=== PATIENT | male | born 1985 | race Caucasian/White ===

== ENCOUNTER → 2019-04-26 07:56 | Outpatient (CLI) | payer OTHER, SELFPAY ==
[2017-06-23 09:28] VITALS: BMI 39.7
[2019-04-26 08:37] LABS: Absolute Lymphocyte Count 1.88 X10^3/uL (0.83-4.51); Absolute Neutrophil Count 2.9 X10^3/uL (2.0-7.7); Basophil# 0.05 X10^3/uL; Basophil% 0.9 % (0-1); Eosinophil# 0.14 X10^3/uL; Eosinophils% 2.5 % (0-5); Hematocrit 45.5 % (40-54); Hemoglobin 15.5 g/dL (13.0-16.5); Lymphocyte # 1.88 X10^3/ul (4.0); Lymphocyte % 33.9 % (19-41); Mean Corp Hgb Conc 34.1 g/dL (32-36); Mean Corpuscular Hgb 31.3 pg (27.0-32.0); Mean Corpuscular Volume 91.9 fL (80-94); Mean Platelet Vol. 9.4 fl (6.2-12.0); Monocyte# 0.55 X10^3/uL; Monocyte% 9.9 % (0-10); NRBC Flagged by Analyzer 0 % (0-5); Neutrophil % 52.3 % (47-70); Platelet Count 321 K/mm3 (150-450); RBC Distribution Width CV 12.2 % (11.6-14.6); Red Blood Count 4.95 M/mm3 (4.6-6.2); White Blood Count 5.6 K/mm3 (4.4-11.0)
[2019-04-26 09:33] LABS: ALB/GLOB Ratio 1.2 RATIO (0.9-2.4); AST(SGOT) 19 U/L (15-37); Alanine Aminotransfer ALT/SGPT 36 U/L (16-61); Alkaline Phosphatase 47 U/L (45-117); Anion Gap 4 (5-15); BUN 13 mg/dL (7-18); BUN/Creat Ratio 17.1 RATIO (10-20); Chloride 109 mmol/L (98-107); Cholesterol 142 mg/dL (200); Creatinine, Serum 0.76 mg/dL (0.70-1.30); EST Glomerular Filtration Rate 127 mL/min (>60); Est Glom Filt Rate - Afr Amer 153 mL/min (>60); Globulin 3.3 g/dL (2.2-4.2); Glucose 89 mg/dL (74-106); High Density Lipoprotein 43 mg/dL; Protein, Total 7.3 g/dL (6.4-8.2); Sodium Level 141 mmol/L (136-145); Triglycerides 45 mg/dL; Very Low Density Lipoprotein 9 mg/dL (5-40)
== END ==
PROVIDERS: PCP Family Medicine; Referring Provider Family Medicine; Visit Provider Family Medicine
DX: Z00.01 Encounter for general adult medical examination with abnormal findings (principal); K21.9 Gastro-esophageal reflux disease without esophagitis; I86.1 Scrotal varices
CPT/HCPCS: 36415; 80053; 80061; 85025

== ENCOUNTER → 2019-05-06 16:08 | Outpatient (CLI) | payer OTHER, SELFPAY ==
[2019-04-29 08:00] VITALS: BMI 39.7
--- NOTE | 2019-05-06 16:15 | US_ITS ---
HISTORY: PAIN ON LT SOMETIMES MILD OR SEVERE NO SWELLING -X 9 YEARS ADDITIONAL HISTORY: None provided. COMPARISON: None TECHNIQUE: Sonographic images of the scrotum were acquired utilizing grayscale and color Doppler images. Spectral Doppler imaging also performed. Number of images including paperwork: 96 FINDINGS: TESTES: Right testis: 4.8 x 2.3 x 3.5 cm. Left testis: 4.7 x 2.4 x 3.2 cm. Testicular echogenicity appears symmetric. Testicular flow is seen bilaterally on Doppler imaging, essentially symmetric. Punctate calcification in the left testis. EPIDIDYMIDES: Normal in size with normal-appearing flow. HYDROCELE: Small bilateral hydroceles. VARICOCELE: None detected. SCROTAL SKIN: No significant thickening. US/Testicular with Arterial Flow IMPRESSION: No definite acute scrotal abnormality is sonographically apparent. Small bilateral hydroceles. at 0145 Reported and signed by: Veronica No MD Electronically Signed: Veronica No MD at 1:45 EST Tel , Service support ,
== END ==
PROVIDERS: PCP Family Medicine; Referring Provider Family Medicine; Visit Provider Family Medicine
DX: I86.1 Scrotal varices (principal)
CPT/HCPCS: 76870; 93976

== ENCOUNTER 2019-05-21 06:44 | Day surgery (SDC) | payer OTHER, SELFPAY ==
[2019-04-29 08:00] VITALS: BMI 39.7
--- NOTE | 2019-04-29 08:00 | HP_ITS ---
Intake Vital Signs 04/29/19 BMI 39.7 04/29/19 Height 5 ft 11 in 04/29/19 Weight: 258 lb 6 oz 04/29/19 BMI 36.0 04/29/19 BP 159/90 H 04/29/19 Blood Pressure Location Rt brachial 04/29/19 Position Sitting 04/29/19 Respiration 19 H 04/29/19 Pulse 85 04/29/19 Pulse Source Monitor 04/29/19 Temp 98.7 F 04/29/19 Temp Source Oral 04/29/19 Pulse Oximetry (%) 97 04/29/19 Oxygen Delivery Method room air 04/29/19 Oxygen Flow Rate (L/min) 0 Intake Visit Reasons: C-Scope Consult Chief Complaint: Evaluation of left index finger, s/p Dermabond. Allergies No Known Allergies Allergy (Verified 06/23/17 09:29) FOR[facility]LY [facility] Medical History Family history of colon cancer (Acute) GERD (gastroesophageal reflux disease) (Acute) Asthma (Acute) Surgical History No history of previous surgery (Acute) Family History Father Hypertension Colon cancer Brother Colon cancer Mother Diabetes Other Cancer Social History (Updated 04/29/19 @ 08:01 by Luis Miguel Edmond MD) Smoking Status: Never smoker alcohol intake: never substance use type: does not use HPI HPI HPI: CUONG MARISCAL, is a 33 M who presents to the office today for HPI HPI Surgical H&P: Yes HPI: CUONG MARISCAL, is a 33 M who presents to the office today for Evaluation for endoscopy. Patient presents with a history of reflux recently started on Prilosec and he has had occasional rectal bleeding. He has a very strong family history of colon cancer. His father of colon cancer at age 70 his brother was diagnosed with colon cancer at age 46 with metastatic disease. Recently the patient had some laboratory values which showed an elevation in his total bilirubin 1.5 with normal cholesterol normal triglycerides and normal AST ALT and alkaline phosphatase. He takes a multivitamin was recently started on a proton pump inhibitor but is on no other medications. Patient does notice that he has some generalized abdominal pain when he eats fatty or greasy foods. Is not complaining of any back pain states that when he does have the greasy foods he will occasionally have looser stools. ROS General General: No weight change, appetite, fatigue, colon cancer, breast cancer or weakness HEENT HEENT: No difficulty swallowing, eye injury, eye surgery, swollen glands or hoarseness Endo Endocrine: No thyroid disease, diabetes mellitus, thyroid cancer, Hair loss, heat intolerance or cold intolerance Skin Skin: No rash or changing moles Breast Breast: No left breast lump, right breast lump, nipple discharge, breast pain, abnormal mammogram, abnormal US or breast enlargement Cardio Cardiovascular: No murmur, pacemaker, heart disease, atrial fibrillation, high blood pressure, heart attack, heart stent, palpitations, shortness of breat with exertion or chest pain Psych Psychiatric: No depression, anxiety or hearing voices Resp Respiratory: No shortness of breath, No sleep apnea, No cough, No COPD, Yes asthma, No emphysema, No wheezing Gastro Gastrointestinal: No abdominal pain, No nausea or vomiting, No diarrhea, No constipation, No blood in stool, Yes acid reflux, No hemorrhoids, No ulcers, No gallbladder problem, No black,tarry stools Kenneth Hematologic: No blood thinners, No blood disorders, No bleeding, No anemia, No blood clots Neuro Neurologic: No system reviewed and no additional complaints, except as docu, No as per HPI, No abnormal walking, No abnormal hearing, No abnormal movements, No abnormal speech, No behavioral changes, No burning sensations, No confusion, No seizure-like activity, No unsteadiness, No dizziness, No localized weakness, No frequent falls, No headache(s), No lack of coordination, No loss of vision, No memory loss, No numbness, No other visual disturbances, No radiating pain, No restless legs, No sensory deficit, No fainting, No tingling, No tremor(s), No weakness, No other Exam Const General: no acute distress, well developed, well hydrated Orientation: oriented to person, oriented to place, oriented to time [facility] Head: normocephalic, atraumatic Ears: external ears normal Mouth: moist mucous membranes Eyes Sclera: sclerae normal Pupils: normal by confrontation Neck Neck: no lymphadenopathy noted Neck mass: No Thyroid: thyroid normal, symmetrical Chest Chest palpation & inspection: normal inspection of the chest Breast Palpation: No nipple discharge Resp Effort & Inspection: normal respiratory effort Auscultation: clear to auscultation bilaterally Percussion: percussion normal Cardio Rate: regular rate Rhythm: regular rhythm Heart Sounds: no murmurs GI Palpation: soft, no hepatosplenomegaly, no masses, nontender Rectal Exam: other Other: Rectal exam deferred. Extrem General: normal to inspection, no clubbing, cyanosis or edema Assessment & Plan Problems 1. Rectal hemorrhage K62.5 2. Gastroesophageal reflux disease, esophagitis presence not specified K21.9 3. Total bilirubin, elevated R17 4. Family history of colon cancer Z80.0 5. Generalized abdominal pain R10.84 Plan I have discussed the above with the patient. I have offered the patient colonoscopy As well as an EGD for evaluation. I have explained the risks/benefits of the procedure and described the procedure. I have discussed the risks with the patient, including but not limited to: infection, bleeding, perforation of the GI tract requiring emergency surgery, inability to complete the procedure, injury to any internal organs, complications of anesthesia, etc. - the patient understands and agrees to proceed. I have answered all the patient's questions to the patient's satisfaction and the patient has no further questions. The patient has been given instructions for the colon cleansing preparation. Once this is completed we will probably entertain the thought of obtaining a CAT scan of his abdomen and pelvis secondary to the generalized abdominal pain and elevation in his total bilirubin. We may also need to obtain a gallbladder ultrasound. Coding Level of Care Code Off vis,new,level 3 Diagnoses Rectal hemorrhage K62.5 Gastroesophageal reflux disease, esophagitis presence not specified K21.9 ??Esophagitis presence: esophagitis presence not specified Total bilirubin, elevated R17 Family history of colon cancer Z80.0 Generalized abdominal pain R10.84 04/29/19 0801 <Electronically signed by Luis Miguel paniagua MD> Date _ Luis Miguel Edmond MD
[2019-05-21] VITALS (7 sets, daily range): BP systolic 112–133; BP diastolic 61–88; PULSE 77–91; RESP 18; TEMP 36.1–36.6; O2SAT 95–97; BMI 34.6
--- NOTE | 2019-05-21 | IMM_PTH ---
PATIENT: CUONG MARISCAL LOC: EN U#:[id number] AGE/SX: 33/M ROOM: RE05/21/[address]: Dr. Luis Miguel Edmond MD : 1985 BED: DIS: 05/21/2019 SPEC #: [id number] RECD: 05/21/19 15:28 STATUS: NAVJOT RECookie #: [id number] DURGA: 05/21/19 00:[address]: Luis Miguel Edmond DEPT: IMMUNOHISTOCHEMISTRY RECD BY: Ann Kaplan ENTERED: 05/21/19 15:28 SP TYPE: IMMUNO OTHR DR: Dr. Jennifer Blackmon MD Tissues: A - Stomach, NOS Procedures: H Pylori (initial) PHYSICIAN & INSTITUTION [place] [address] SPECIMEN INFORMATION: Tissue Source: Antrum biopsy Clinical Info: GERD Specimen Number: [id number] CPT code: 61181 METHODOLOGY: Deparaffinized sections of prefer/formalin-fixed tissue or PAP/DQ stained slides are incubated with monoclonal/polyclonal antibodies/oligonucleotide probes. Localization is made via biotin free immunoperoxidase method. Appropriate controls are performed and reacted as expected. Results on target cell population are indicated in the following table: RESULTS: ANTIBODY / CLONE RESULT H Pylori (polyclonal) negative These tests were developed and their performance characteristics determined by [facility]. They may not have been cleared or approved by the U.S. Food and Drug Administration. The FDA has determined that such clearance or approval is not necessary. INTERPRETATION: Antrum biopsy: Negative for Helicobacter pylori organisms. ROCHELLE:tasha 05/22/19
[2019-05-21] MEDS: Lactated Ringers 1,000 ML 100 ML IV (07:24)
--- NOTE | 2019-05-21 07:52 | PCM.HP.BLA ---
History and Physical Date of Admission: 05/21/19 [facility] Medical Records Department [address] [place] [address] History and Physical 04/29/19 0800 MR#: [id number] Acct: [id number] Name: CUONG MARISCAL Rep #: [id number] : 1985 33 From: Luis Miguel Edmond MD PCP: Jennifer Blackmon MD Status: PRE SD Location: EN Intake Vital Signs 04/29/19 BMI 39.7 04/29/19 Height 5 ft 11 in 04/29/19 Weight: 258 lb 6 oz 04/29/19 BMI 36.0 04/29/19 BP 159/90 H 04/29/19 Blood Pressure Location Rt brachial 04/29/19 Position Sitting 04/29/19 Respiration 19 H 04/29/19 Pulse 85 04/29/19 Pulse Source Monitor 04/29/19 Temp 98.7 F 04/29/19 Temp Source Oral 04/29/19 Pulse Oximetry (%) 97 04/29/19 Oxygen Delivery Method room air 04/29/19 Oxygen Flow Rate (L/min) 0 Intake Visit Reasons: C-Scope Consult Chief Complaint: Evaluation of left index finger, s/p Dermabond. Allergies No Known Allergies Allergy (Verified 06/23/17 09:29) PFSH Medical History Family history of colon cancer (Acute) GERD (gastroesophageal reflux disease) (Acute) Asthma (Acute) Surgical History No history of previous surgery (Acute) Family History Father Hypertension Colon cancer Brother Colon cancer Mother Diabetes Other Cancer Social History (Updated 04/29/19 @ 08:01 by Luis Miguel Edmond MD) Smoking Status: Never smoker alcohol intake: never substance use type: does not use HPI HPI HPI: CUONG MARISCAL is a 33 M who presents to the office today for HPI HPI Surgical H&P: Yes HPI: CUONG MARISCAL is a 33 M who presents to the office today for Evaluation for endoscopy. Patient presents with a history of reflux recently started on Prilosec and he has had occasional rectal bleeding. He has a very strong family history of colon cancer. His father of colon cancer at age 70 his brother was diagnosed with colon cancer at age 46 with metastatic disease. Recently the patient had some laboratory values which showed an elevation in his total bilirubin 1.5 with normal cholesterol normal triglycerides and normal AST ALT and alkaline phosphatase. He takes a multivitamin was recently started on a proton pump inhibitor but is on no other medications. Patient does notice that he has some generalized abdominal pain when he eats fatty or greasy foods. Is not complaining of any back pain states that when he does have the greasy foods he will occasionally have looser stools. ROS General General: No weight change, appetite, fatigue, colon cancer, breast cancer or weakness HEENT HEENT: No difficulty swallowing, eye injury, eye surgery, swollen glands or hoarseness Endo Endocrine: No thyroid disease, diabetes mellitus, thyroid cancer, Hair loss, heat intolerance or cold intolerance Skin Skin: No rash or changing moles Breast Breast: No left breast lump, right breast lump, nipple discharge, breast pain, abnormal mammogram, abnormal US or breast enlargement Cardio Cardiovascular: No murmur, pacemaker, heart disease, atrial fibrillation, high blood pressure, heart attack, heart stent, palpitations, shortness of breat with exertion or chest pain Psych Psychiatric: No depression, anxiety or hearing voices Resp Respiratory: No shortness of breath, No sleep apnea, No cough, No COPD, Yes asthma, No emphysema, No wheezing Gastro Gastrointestinal: No abdominal pain, No nausea or vomiting, No diarrhea, No constipation, No blood in stool, Yes acid reflux, No hemorrhoids, No ulcers, No gallbladder problem, No black,tarry stools Kenneth Hematologic: No blood thinners, No blood disorders, No bleeding, No anemia, No blood clots Neuro Neurologic: No system reviewed and no additional complaints, except as docu, No as per HPI, No abnormal walking, No abnormal hearing, No abnormal movements, No abnormal speech, No behavioral changes, No burning sensations, No confusion, No seizure-like activity, No unsteadiness, No dizziness, No localized weakness, No frequent falls, No headache(s), No lack of coordination, No loss of vision, No memory loss, No numbness, No other visual disturbances, No radiating pain, No restless legs, No sensory deficit, No fainting, No tingling, No tremor(s), No weakness, No other Exam Const General: no acute distress, well developed, well hydrated Orientation: oriented to person, oriented to place, oriented to time [facility] Head: normocephalic, atraumatic Ears: external ears normal Mouth: moist mucous membranes Eyes Sclera: sclerae normal Pupils: normal by confrontation Neck Neck: no lymphadenopathy noted Neck mass: No Thyroid: thyroid normal, symmetrical Chest Chest palpation & inspection: normal inspection of the chest Breast Palpation: No nipple discharge Resp Effort & Inspection: normal respiratory effort Auscultation: clear to auscultation bilaterally Percussion: percussion normal Cardio Rate: regular rate Rhythm: regular rhythm Heart Sounds: no murmurs GI Palpation: soft, no hepatosplenomegaly, no masses, nontender Rectal Exam: other Other: Rectal exam deferred. Extrem General: normal to inspection, no clubbing, cyanosis or edema Assessment & Plan Problems 1. Rectal hemorrhage K62.5 2. Gastroesophageal reflux disease, esophagitis presence not specified K21.9 3. Total bilirubin, elevated R17 4. Family history of colon cancer Z80.0 5. Generalized abdominal pain R10.84 Plan I have discussed the above with the patient. I have offered the patient colonoscopy As well as an EGD for evaluation. I have explained the risks/benefits of the procedure and described the procedure. I have discussed the risks with the patient, including but not limited to: infection, bleeding, perforation of the GI tract requiring emergency surgery, inability to complete the procedure, injury to any internal organs, complications of anesthesia, etc. - the patient understands and agrees to proceed. I have answered all the patient's questions to the patient's satisfaction and the patient has no further questions. The patient has been given instructions for the colon cleansing preparation. Once this is completed we will probably entertain the thought of obtaining a CAT scan of his abdomen and pelvis secondary to the generalized abdominal pain and elevation in his total bilirubin. We may also need to obtain a gallbladder ultrasound. Coding Level of Care Code Off vis,new,level 3 Diagnoses Rectal hemorrhage K62.5 Gastroesophageal reflux disease, esophagitis presence not specified K21.9 ??Esophagitis presence: esophagitis presence not specified Total bilirubin, elevated R17 Family history of colon cancer Z80.0 Generalized abdominal pain R10.84 04/29/19 0801 <Electronically signed by Luis Miguel Edmond MD> Date Luis Miguel Edmond MD 05/01/19 1036 <Electronically signed by Luis Miguel Edmond MD> Date: Time: Lusi Miguel Edmond MD CC: Luis Miguel Edmond MD; Jennifer Blackmon MD ~ Date Dictated: 04/29/19 0800 Date Transcribed: 04/29/19 1557 Employee Relations Administrator: NR Signed I have re-examined the patient. There are no clinical changes since date of exam.
--- NOTE | 2019-05-21 08:00 | GASB_PTH ---
PATIENT: CUONG MARISCAL LOC: EN U#:[id number] AGE/SX: 33/M ROOM: RE05/21/[address]: Dr. Luis Miguel Edmond MD : 1985 BED: DIS: 05/21/2019 SPEC #: [id number] RECD: 05/21/19 11:40 STATUS: NAVJOT TRUONG #: [id number] DURGA: 05/21/19 08:[address]: Luis Miguel Edmond DEPT: SURGICAL PATHOLOGY RECD BY: Whit Lopez ENTERED: 05/21/19 12:36 SP TYPE: Gastric Bx OTHR DR: Dr. Jennifer Blackmon MD Tissues: Gastric mucous membrane Procedures: Surgery Specimen Level IV HEADER OPERATION: Colonoscopy, EGD ([facility]) PRE-OP DIAGNOSIS: GERD, family history of colon cancer TISSUE SUBMITTED: Antrum biopsy for H. pylori and path MICROSCOPIC DIAGNOSIS Antrum biopsy: Minimal gastritis. A few lymphoid aggregates, favor benign. See microscopic description and comment. ROCHELLE:tasha 05/22/19 COMMENT The results of immunohistochemistry for Helicobacter pylori will be reported separately ([id number]). MICROSCOPIC DESCRIPTION Slides are reviewed. The specimen shows fragments of gastric mucosa with chronic inflammatory cell infiltrates in the lamina propria consisting of lymphocytes and plasma cells, consistent with minimal chronic gastritis. A few lymphoid aggregates are also noted, favor benign. GROSS DESCRIPTION Received in fixative is one container labeled with the patient's name and designated antrum biopsy. The specimen consists of one irregular fragment of light rosales soft tissue that measures 0.6 x 0.3 x 0.1 cm. The specimen is totally submitted in one cassette. / ROCHELLE:tasha 05/21/19 TC:3 CPT: 12558
--- NOTE | 2019-05-21 08:27 | OP.EGD_ITS ---
Patient Name: Foster Mendoza Procedure Date: 05/21/2019 7:59 AM Date of : 1985 Age: 33 Procedure: Upper GI endoscopy Indications: Esophageal reflux, Occult blood in stool Providers: Luis Miguel Edmond MD Referring MD: Luis Miguel Edmond MD Medicines: See the Anesthesia note for documentation of the administered medications Patient Profile: This is a 33 year old male. Refer to note in patient chart for documentation of history and physical. Complications: No immediate complications. Procedure: Pre-Anesthesia Assessment: - Prior to the procedure, a History and Physical was performed, and patient medications and allergies were reviewed. The patient's tolerance of previous anesthesia was also reviewed. The risks and benefits of the procedure and the sedation options and risks were discussed with the patient. All questions were answered, and informed consent was obtained. Prior Anticoagulants: The patient has taken no previous anticoagulant or antiplatelet agents. ASA Grade Assessment: II - A patient with mild systemic disease. After reviewing the risks and benefits, the patient was deemed in satisfactory condition to undergo the procedure. After obtaining informed consent, the endoscope was passed under direct vision. Throughout the procedure, the patient's blood pressure, pulse, and oxygen saturations were monitored continuously. The gastroscope was introduced through the mouth, and advanced to the second part of duodenum. The upper GI endoscopy was accomplished without difficulty. The patient tolerated the procedure well. Scope In: 8:07:43 AM Scope Out: 8:10:42 AM Total Procedure Duration Time 0 hours 2 minutes 59 seconds Findings: The examined esophagus was normal. The Z-line was regular and was found 44 cm from the incisors. The entire examined stomach was normal. Biopsies were taken with a cold forceps for Helicobacter pylori testing. The examined duodenum was normal. No biopsies or other specimens were collected for this exam. Impression: - Normal esophagus. - Z-line regular, 44 cm from the incisors. - Normal stomach. Biopsied. - Normal examined duodenum. No specimens collected. Recommendation: - Discharge patient to home. - Resume previous diet. - Continue present medications. - Await pathology results. - Repeat upper endoscopy (date not yet determined) for surveillance. - Return to my office in 1 week. Procedure Code(s): --- Professional --- 68211, Esophagogastroduodenoscopy, flexible, transoral; with biopsy, single or multiple Diagnosis Code(s): --- Professional --- K21.9, Gastro-esophageal reflux disease without esophagitis R19.5, Other fecal abnormalities CPT copyright 2017 [employer]. All rights reserved. The codes documented in this report are preliminary and upon medicare compliance auditor review may be revised to meet current compliance requirements. MD Luis Miguel Polo MD 05/21/2019 8:26:42 AM This report has been signed electronically. Number of Addenda: 0 Note Initiated On: 05/21/2019 7:59 AM
--- NOTE | 2019-05-21 08:27 | OP.CCLET_ITS ---
05/21/2019 Jennifer Blackmon [place] [address] [place] [address] Re : Upper GI endoscopy procedure for Foster Mendoza Dear Dr. Blackmon This procedure was performed on Tuesday, May 21, 2019. My impressions and recommendations are as follows: Impressions : - Normal esophagus. - Z-line regular, 44 cm from the incisors. - Normal stomach. Biopsied. - Normal examined duodenum. No specimens collected. Recommendations : - Discharge patient to home. - Resume previous diet. - Continue present medications. - Await pathology results. - Repeat upper endoscopy (date not yet determined) for surveillance. - Return to my office in 1 week. My findings are described in the full procedure note, which is enclosed. If I can be of further assistance, please feel free to contact me at Doctor phone number(s): , Fax: [phone], Work: . Sincerely, MD Luis Miguel Polo MD 05/21/2019 8:26:42 AM This report has been signed electronically.
--- NOTE | 2019-05-21 08:29 | OP.COLON_ITS ---
Patient Name: Foster Mendoza Procedure Date: 05/21/2019 8:12 AM Date of : 1985 Age: 33 Procedure: Colonoscopy Indications: Family history of colon cancer in multiple first-degree relatives, Rectal bleeding Providers: Luis Miguel Edmond MD Referring MD: Luis Miguel Edmond MD Medicines: See the Anesthesia note for documentation of the administered medications Patient Profile: This is a 33 year old male. Refer to note in patient chart for documentation of history and physical. Last Colonoscopy: none. The patient's first colonoscopy is today. Complications: No immediate complications. Procedure: Pre-Anesthesia Assessment: - Prior to the procedure, a History and Physical was performed, and patient medications and allergies were reviewed. The patient's tolerance of previous anesthesia was also reviewed. The risks and benefits of the procedure and the sedation options and risks were discussed with the patient. All questions were answered, and informed consent was obtained. Prior Anticoagulants: The patient has taken no previous anticoagulant or antiplatelet agents. ASA Grade Assessment: II - A patient with mild systemic disease. After reviewing the risks and benefits, the patient was deemed in satisfactory condition to undergo the procedure. After I obtained informed consent, the scope was passed under direct vision. Throughout the procedure, the patient's blood pressure, pulse, and oxygen saturations were monitored continuously. The adult colonoscope was introduced through the anus and advanced to 5 cm into the ileum. The colonoscopy was performed without difficulty. The patient tolerated the procedure well. The quality of the bowel preparation was good. Scope In: 8:12:41 AM Scope Withdrawal Time 0 hours 6 minutes 5 seconds Scope Out: 8:22:47 AM Total Procedure Duration Time 0 hours 10 minutes 6 seconds Findings: Non-bleeding internal hemorrhoids were found during retroflexion. The hemorrhoids were mild and small. The terminal ileum appeared normal. The exam was otherwise without abnormality. Impression: - Non-bleeding internal hemorrhoids. - The examined portion of the ileum was normal. - The examination was otherwise normal. - No specimens collected. Recommendation: - Discharge patient to home. - Resume previous diet. - Continue present medications. - Repeat colonoscopy in 9 years for surveillance. - Return to my office in 1 week. Procedure Code(s): --- Professional --- 83848, Colonoscopy, flexible; diagnostic, including collection of specimen(s) by brushing or washing, when performed (separate procedure) Diagnosis Code(s): --- Professional --- K64.8, Other hemorrhoids Z80.0, Family history of malignant neoplasm of digestive organs K62.5, Hemorrhage of anus and rectum CPT copyright 2017 [employer]. All rights reserved. The codes documented in this report are preliminary and upon financial controller review may be revised to meet current compliance requirements. MD Luis Miguel Polo MD 05/21/2019 8:29:29 AM This report has been signed electronically. Number of Addenda: 0 Note Initiated On: 05/21/2019 8:12 AM
--- NOTE | 2019-05-21 08:30 | OP.CCLET_ITS ---
05/21/2019 Jennifer Blackmon [place] [id number] [address] Re : Colonoscopy procedure for Foster Mendoza Dear Dr. Blackmon This procedure was performed on Tuesday, May 21, 2019. My impressions and recommendations are as follows: Impressions : - Non-bleeding internal hemorrhoids. - The examined portion of the ileum was normal. - The examination was otherwise normal. - No specimens collected. Recommendations : - Discharge patient to home. - Resume previous diet. - Continue present medications. - Repeat colonoscopy in 9 years for surveillance. - Return to my office in 1 week. My findings are described in the full procedure note, which is enclosed. If I can be of further assistance, please feel free to contact me at Doctor phone number(s): , Fax: [phone], Work: . Sincerely, MD Luis Miguel Polo MD 05/21/2019 8:29:29 AM This report has been signed electronically.
== END 2019-05-21 09:14 | disposition home or self-care (01) ==
LOC: EN 06:48 → AC 06:49
PROVIDERS: PCP Family Medicine; Referring Provider Surgery; Visit Provider Surgery
PROC: 0DJD8ZZ Inspection of Lower Intestinal Tract, Via Natural or Artificial Opening Endoscopic (ICD-10-PCS; CPT 45378; principal; 2019-05-21 07:55)
DX: K29.70 Gastritis, unspecified, without bleeding (principal); K21.9 Gastro-esophageal reflux disease without esophagitis; R19.5 Other fecal abnormalities; K64.8 Other hemorrhoids; K62.5 Hemorrhage of anus and rectum; J45.909 Unspecified asthma, uncomplicated; Z80.0 Family history of malignant neoplasm of digestive organs
CPT/HCPCS: 43239; 45378; 88305; 88342; J7120; J2405